=== PATIENT | female | born 1990 | race African-American/Black ===

== ENCOUNTER 2016-05-18 12:14 | Emergency (ER) | payer BC, OTHER ==
[~2016-05-18] VITALS: Ht 162.6 cm; Wt 45.4 kg
[~2016-05-18 12:14] MED LIST: AZITHROMYC200 MG/52 GT; NORCO 5-325 TA1 EACH PO; PENICILLIN VK500 MG PO; TOPROL XL25 MG
[2016-05-18 12:15] VITALS: BP 151/88
[2016-05-18] MEDS ORDERED: CETIRIZINE HCL5 MG PO (12:19)
[2016-05-18] MEDS ORDERED: ERYTHROMYCIN E3.5 G3 OPHTHALMIC (12:56)
== END 2016-05-18 13:02 ==
LOC: ER 12:14
DX: H57.8 Other specified disorders of eye and adnexa (principal); J45.909 Unspecified asthma, uncomplicated; Z88.1 Allergy status to other antibiotic agents

== ENCOUNTER 2017-06-27 19:55 | Emergency (ER) | payer BC, OTHER ==
--- NOTE | ~2017-06-27 | EKG ---
[address] [address] [place] [address] ELECTROCARDIOGRAM REPORT Name: QUACHDYLLAN Room #: [facility]#: [id number] Admission: Attend Phys: Discharge: Date of : 89 Report #: [id number] THIS REPORT FOR: //name// [facility] ED Test Date: 2017-06-27 Test Time: 20:03:30 Pat Name: DYLLAN QUACH Department: Room: Gender: F Legal Coordinator: JAMEE : 1990 Requested By: Xavier Caro Order Number: [id number] MD: Measurements Intervals [place] Rate: 128 P: 69 [place]: 156 QRS: 64 QRSD: 76 T: -42 QT: 289 QTc: 422 Interpretive Statements Sinus tachycardia Probable left atrial enlargement RSR' in V1 or V2, right VCD or RVH Nonspecific T abnormalities, inferior leads Compared to ECG 06/12/2010 18:00:05 Right ventricular hypertrophy now present RSR' in V1 or V2 now present T-wave abnormality now present Sinus rhythm no longer present Sinus arrhythmia no longer present [email or web address] By: 02 02 Epiphany Epiphany, /EPI
[~2017-06-27 19:55] MED LIST changes: +CETIRIZINE HCL5 MG PO; +ERYTHROMYCIN E3.5 G3 OPHTHALMIC
== END 2017-06-27 21:47 | disposition left against medical advice (07) ==
LOC: ER 19:55
DX: Z53.21 Procedure and treatment not carried out due to patient leaving prior to being seen by health care provider (principal)